=== PATIENT | female | born 1950 ===

== ENCOUNTER 2019-10-17 21:18 | Emergency (ER) | payer OTHER ==
[~2019-10-17] VITALS: Ht 165.1 cm; Wt 129.7 kg
[~2019-10-17 21:18] MED LIST: AFRIN SPRAY15 ML NS; AYR SALINE NA14.1 GM NASAL; DERMOTIC20 ML OTIC; ZYRTEC10 MG PO
== END 2019-10-17 23:10 | disposition home or self-care (01) ==
LOC: ER 21:18
DX: R50.9 Fever, unspecified (principal)

== ENCOUNTER 2019-10-29 10:07 | Emergency (ER) | payer OTHER ==
[~2019-10-29] VITALS: Ht 165.1 cm; Wt 131.5 kg
[2019-10-29] MEDS ORDERED: GLUMETZA500 MG PO (10:36)
[2019-10-29] MEDS ORDERED: DIOVAN40 MG PO (10:37)
[2019-10-29] MEDS ORDERED: PLAVIX75 MG PO (10:37)
[2019-10-29] MEDS ORDERED: NEURONTIN600 M1 PO (10:37)
[2019-10-29] MEDS ORDERED: LOTREL 10-20 M1 EACH PO (10:37)
[2019-10-29] MEDS ORDERED: KAPVAY0.1 MG PO (10:38)
[2019-10-29] MEDS ORDERED: ZOLOFT25 MG PO (10:38)
== END 2019-10-29 16:15 | disposition home or self-care (01) ==
LOC: ER 10:07
DX: I50.9 Heart failure, unspecified (principal); R06.02 Shortness of breath; I10 Essential (primary) hypertension